=== PATIENT | male | born 2000 | race Caucasian/White ===

== ENCOUNTER 2024-04-01 05:29 | Day surgery (SDC) | payer OTHER ==
[2024-04-01] MEDS: ONDANSETRON 4 MG/2 ML VIAL IVPB ONE (05:30)
[2024-04-01] MEDS ORDERED: ONDANSETRON 4 MG/2 ML VIAL ONE ×3 (05:32→13:49)
[2024-04-01] MEDS ORDERED: ACETAMINOPHEN INJECTION 100 ML IVPB ONE ×2 (05:40→16:48)
[2024-04-01] MEDS: ACETAMINOPHEN 1000 MG/100 ML BAG IVPB ONE (05:46)
[2024-04-01] MEDS: SODIUM CHLORIDE 1,000 ML IV ONE (05:46)
[2024-04-01] MEDS ORDERED: LOPERAMIDE HCL 2 MG CAPSULE ONE (06:46)
[2024-04-01] MEDS: LOPERAMIDE HCL 2 MG CAPSULE PO ONE (06:49)
[2024-04-01 07:05] LABS: EPI CELLS 2 /uL (0-25.1); HYALINE CASTS 1 /uL (0-3.1); PH,URINE 5.5 (5.0-8.0); URINE APPEARANCE CLEAR; URINE BACTERIA 8 /uL (0-1359); URINE BILIRUBIN NEGATIVE (NEGATIVE); URINE COLOR DK YELLOW; URINE GLUCOSE (UA) NEGATIVE (NEGATIVE); URINE KETONE TRACE (NEGATIVE); URINE LEUK ESTERASE NEGATIVE (NEGATIVE); URINE NITRITE NEGATIVE (NEGATIVE); URINE PROTEIN 2+ (NEGATIVE); URINE RBC 16 /uL (0-23.9); URINE WBC 8 /uL (0-25.8)
[2024-04-01 07:24] LABS: HEMATOCRIT 44.1 % (35.4-49); HEMOGLOBIN 14.9 GM/dL (11.7-16.9); MCH 29.3 pg (25.7-33.7); MCHC 33.8 g/dl (32.0-35.9); MEAN CELL VOLUME 86.6 fl (80-96); MEAN PLT VOLUME 8.5 fl (7.5-11.1); PLATELET COUNT 266 10^3/uL (134-434); WHITE BLOOD COUNT 15.3 K/mm3 (4.0-10.0)
[2024-04-01 07:37] LABS: ALBUMIN 4.5 g/dl (3.4-5.0); BILIRUBIN,TOTAL 0.7 mg/dL (0.2-1); BLOOD UREA NITROGEN 17.4 mg/dL (7-18); CALCIUM 9.9 mg/dL (8.5-10.1); CREATININE 1.1 mg/dL (0.55-1.3); TOT PROT 7.9 g/dl (6.4-8.2)
[2024-04-01] MEDS ORDERED: METOCLOPRAMIDE HCL INJECTION 10 MG/2 ML VIAL ONE (08:46)
[2024-04-01] MEDS: CEFOXITIN SODIUM 2 GM in DEXTROSE 5%-WATER - 100 ML IVPB ONE (09:56)
[2024-04-01] MEDS ORDERED: KETOROLAC TROMETHAMINE 30 MG/1 ML VIAL IVPUSH PRN ×2 (09:59→16:34)
[2024-04-01 10:04] LABS: INR 1.1 (0.83-1.09); PROTHROMBIN TIME (PATIENT) 12.5 SEC (9.7-13.0)
[2024-04-01] MEDS: SODIUM CHLORIDE 1,000 ML IV SCH (13:18)
[2024-04-01] MEDS: ONDANSETRON 4 MG/2 ML VIAL IVPUSH PRN (13:28)
[2024-04-01 13:34] VITALS: BMI 24.1
[2024-04-01] MEDS ORDERED: ROCURONIUM BROMIDE 50 MG/5 ML SYRINGE ONE (13:49)
[2024-04-01] MEDS ORDERED: SUCCINYLCHOLINE CHLORIDE 200 MG/10 ML SYRINGE ONE (13:49)
[2024-04-01] MEDS ORDERED: PROPOFOL 20 ML ONE (13:49)
[2024-04-01] MEDS ORDERED: DEXAMETHASONE SOD PHOSPHATE 4 MG/1 ML VIAL ONE (13:49)
[2024-04-01] MEDS ORDERED: LIDOCAINE HCL/PF 2% SDV 5ML VIAL ONE (13:49)
[2024-04-01] MEDS ORDERED: ceFAZolin SODIUM 1 GM VIAL ONE (13:49)
[2024-04-01] MEDS ORDERED: MIDAZOLAM HCL 2 MG/2 ML SINGLE DOSE VIAL ONE (13:49)
[2024-04-01] MEDS ORDERED: BUPIVACAINE HCL/EPINEPHRINE/PF 30 ML VIAL IJ ONE (14:13)
[2024-04-01] MEDS: ACETAMINOPHEN 1000 MG/100 ML BAG IVPB PRN ×2 (14:13→16:45)
[2024-04-01] MEDS ORDERED: BUPIVACAINE HCL/PF 2.5 MG/ML - 30 ML VIAL IJ ONE (14:36)
[2024-04-01] MEDS: BUPIVACAINE HCL/PF 0.25% (2.5MG/ML) 10 ML VIAL IJ ONE (15:34)
[2024-04-01] MEDS ORDERED: SUGAMMADEX SODIUM 200 MG/2 ML VIAL ONE (15:51)
[2024-04-01] MEDS ORDERED: ONDANSETRON 4 MG/2 ML VIAL IVPUSH PRN ×3 (16:13→16:34)
[2024-04-01] MEDS: LACTATED RINGERS SOLUTION 1,000 ML IV SCH ×2 (16:51→17:47)
[2024-04-01] MEDS: CEFAZOLIN 1 GM in DEXTROSE 5%-WATER - 50 ML IVPB SCH (17:00)
[2024-04-01] MEDS: ceFAZolin SODIUM 1 GM VIAL ONE (17:00)
[2024-04-01] MEDS ORDERED: CEFAZOLIN 1 GM in DEXTROSE 5%-WATER - 50 ML IVPB SCH (17:00)
[2024-04-01 22:12] VITALS: RESP 18
[2024-04-02 08:20] LABS: HEMATOCRIT 36.3 % (35.4-49); HEMOGLOBIN 11.9 G/dL (11.7-16.9); MCH 28.6 pg (25.7-33.7); MCHC 32.8 g/dl (32.0-35.9); MEAN CELL VOLUME 87.2 fl (80-96); MEAN PLT VOLUME 8.4 fl (7.5-11.1); PLATELET COUNT 146.3 10^3/uL (134-434); RBC 4.16 10^6/uL (4.00-5.60); RDW 14.2 % (11.9-15.9); WHITE BLOOD COUNT 5.1 10^3/uL (4.0-10.8)
[2024-04-02 08:36] LABS: ALBUMIN 3.6 g/dl (3.4-5.0); ALK PHOS 48 U/L (45-117); ANION GAP 6 mmol/L (4-13); BILIRUBIN,TOTAL 0.7 mg/dl (0.2-1); CALCIUM 8.5 mg/dl (8.5-10.1); CHLORIDE 103 mmol/L (98-107); CO2 29 mmol/L (21-32); GLUCOSE,RANDOM 118 mg/dl (74-106); MAGNESIUM 1.5 mg/dL (1.8-2.4); PHOSPHOROUS 2.9 (2.5-4.9); POTASSIUM 3.2 mmol/L (3.5-5.1); SGOT/AST 22 U/L (15-37); SGPT/ALT 15 U/L (7-52); SODIUM 138 mmol/L (136-145); TOT PROT 5.3 g/dl (6.4-8.2)
[2024-04-02] MEDS: POTASSIUM CHLORIDE ORAL LIQUID 20 MEQ/15 ML PO ONE (09:40)
[2024-04-02] MEDS: MAGNESIUM OXIDE 400 MG TABLET (FP) PO ONE (09:40)
[2024-04-02 10:26] VITALS: BP 109/59; PULSE 72; TEMP 97.3
== END 2024-04-02 12:37 | disposition home or self-care (01) ==
LOC: FER 05:29 → FM/S 09:29 → UNDOADMOB 09:29 → FM/S 11:08 → FASUSAT 04-02 09:21 → FM/S 04-02 12:30 → FASUSAT 04-02 12:37
PROVIDERS: ATTEND Internal Medicine
PROC: 0DTJ4ZZ Resection of Appendix, Percutaneous Endoscopic Approach (ICD-10-PCS; principal; 2024-04-02)
DX: K35.80 Unspecified acute appendicitis (principal)
CPT/HCPCS: 36415; 74177-TC; 80053; 81003; 83690; 83735; 84100; 85027; 85610; 86850; 86900; 86901; 94760; J0131; Q9967